=== PATIENT | female | born 1945 | race Caucasian/White ===

== ENCOUNTER 2018-02-12 09:47 | Day surgery (SDC) | payer MEDICARE, BC ==
[~2018-02-12 09:47] MED LIST: Lactated Ringers 1,000 ML IV SCH; Sodium Chloride 0.9% 10 ML Syringe FLUSH PRN; Sodium Chloride 0.9% 2.5 ML Syringe FLUSH PRN
[2018-02-12] MEDS ORDERED: fentaNYL 100 MCG/2 ML SDV ONE (10:24)
[2018-02-12] MEDS ORDERED: Midazolam 1 MG/ML 2 ML SDV ONE (10:24)
[2018-02-12] MEDS ORDERED: Propofol 200 MG/20 ML SDV ONE ×3 (10:24→12:25)
--- NOTE | 2018-02-12 10:31 | PCM.PREANE ---
Preanesthetic Assessment - Anesthesia/Transfusion/Family Hx Anesthesia History: Prior Anesthesia Without Reaction Family History of Anesthesia Reaction: No Transfusion History: No Prior Transfusion(s) Intubation History: Unknown - Review of Systems General: No Symptoms Pulmonary: No Symptoms Cardiovascular: No Symptoms Gastrointestinal: No Symptoms, Other (h/o large polyp) Neurological: No Symptoms Other: Reports: None - Physical Assessment O2 Sat by Pulse Oximetry: 96 Respiratory Rate: 16 Vital Signs: Last Vital Signs Temp 36.6 C 02/12/18 10:05 Pulse 83 02/12/18 10:05 Resp 16 02/12/18 10:05 BP 130/75 02/12/18 10:05 Pulse Ox 96 02/12/18 10:05 Height: 1.78 m Weight: 92.533 kg ASA Class: 3 Mental Status: Alert & Oriented x3 Airway Class: Mallampati = 2 Dentition: Reports: Bridge (upper fixed - 8 teeth) Thyro-Mental Finger Breadths: 3 Mouth Opening Finger Breadths: 2 ROM/Head Extension: Full Lungs: Clear to Auscultation, Normal Respiratory Effort Cardiovascular: Regular Rate, Regular Rhythm - Allergies Allergies/Adverse Reactions: Allergies Allergy/AdvReac Type Severity Reaction Status Date / Time No Known Allergies Allergy Verified 02/05/18 12:16 - Blood Blood Available: No - Anesthesia Plan Pre-Op Medication Ordered: None - Acknowledgements Anesthesia Type Planned: MAC Pt an Appropriate Candidate for the Planned Anesthesia: Yes Alternatives and Risks of Anesthesia Discussed w Pt/Guardian: Yes Pt/Guardian Understands and Agrees with Anesthesia Plan: Yes PreAnesthesia Questionnaire HEENT History: Reports: Other (See Below) Other HEENT History: wears glasses, has upper permanent partial denture Cardiovascular History: Reports: High Cholesterol, Hypertension Gastrointestinal History: Reports: Colon Polyp Musculoskeletal History: Reports: Arthritis, Fracture Other Musculoskeletal History: hx of fx toe, arthritis in hands Endocrine/Metabolic History: Reports: Hypothyroidism - Past Surgical History GI Surgical History: Reports: Colonoscopy (5 years ago (large cecal popyp - only partialy removed)) Female Surgical History: Reports: Other (See Below) Other Female Surgeries/Procedures: laparoscopy with removal of ovarian cyst - SUBSTANCE USE Smoking Status *Q: Former Smoker (stop smoking 35 years ago) Tobacco Use Within Last Twelve Months: No Days Per Week of Alcohol Use: 1 Number of Drinks Per Day: 4 Total Drinks Per Week: 4 Recreational Drug Use History: No - HOME MEDS Home Medications: Home Meds Ascorbic Acid [Vitamin C] 1,000 mg PO DAILY 02/09/18 [History] Aspirin [Adult Low Dose Aspirin EC] 81 mg PO DAILY 02/09/18 [History] Levothyroxine Sodium [Synthroid] 112 mcg PO DAILY 02/09/18 [History] Losartan/Hydrochlorothiazide [Losartan-HCTZ 100-25 MG] 1 tab PO DAILY 02/09/18 [ History] Lovastatin 10 mg PO DAILY 02/09/18 [History] Multivit-Min/FA/Lycopene/Lut [Centrum Silver Tablet] 1 tab PO DAILY 02/09/18 [ History] Vitamin B Complex 1 cap PO DAILY 02/09/18 [History] - CURRENT (IN HOUSE) MEDS Current Meds: Current Medications Lactated Ringer's (Ringers, Lactated) 1,000 mls @ 125 mls/hr IV ASDIRECTED SUSANNE Last Admin: 02/12/18 10:07 Dose: 125 mls/hr Sodium Chloride (Saline Flush) 10 ml FLUSH ASDIRECTED PRN PRN Reason: Keep Vein Open Sodium Chloride (Saline Flush) 2.5 ml FLUSH ASDIRECTED PRN PRN Reason: Keep Vein Open Sodium Chloride (Saline Flush) 10 ml FLUSH ASDIRECTED PRN PRN Reason: Keep Vein Open Sodium Chloride (Saline Flush) 2.5 ml FLUSH ASDIRECTED PRN PRN Reason: Keep Vein Open Discontinued Medications Fentanyl (Sublimaze) Confirm Administered Dose 100 mcg .ROUTE .STK-MED ONE Stop: 02/12/18 10:25 Midazolam HCl (Versed 1 Mg/Ml) Confirm Administered Dose 2 mg .ROUTE .STK-MED ONE Stop: 02/12/18 10:25 Propofol (Diprivan 20 Ml) Confirm Administered Dose 200 mg .ROUTE .STK-MED ONE Stop: 02/12/18 10:25
--- NOTE | 2018-02-12 12:36 | PCM48HPAN ---
Post Anesthesia Note - EVALUATION WITHIN 48HRS OF ANESTHETIC Vital Signs in Normal Range: Yes Patient Participated in Evaluation: Yes Respiratory Function Stable: Yes Airway Patent: Yes Cardiovascular Function Stable: Yes Hydration Status Stable: Yes Pain Control Satisfactory: Yes Nausea and Vomiting Control Satisfactory: Yes Mental Status Recovered: Yes Resp Rate: 18 - COMMENTS/OBSERVATIONS Free Text/Narrative:: no anesthesia problems
--- NOTE | 2018-02-12 13:26 | PCM.OPNOTE ---
- General Post-Op/Procedure Note Date of Surgery/Procedure: 02/12/18 Operative Procedure(s): Diagnostic EGD Findings: Cecal mass, hepatic flexure polyp, sigmoid polyp x 2, grade 3 hemorrhoids Pre Op Diagnosis: HIstory of cecal mass Post-Op Diagnosis: Cecal mass, hepatic flexure polyp, sigmoid colon polyp x 2, grade 3 hemorrhoids Anesthesia Technique: MAC Primary Surgeon: Nitza Hancock Condition: Good Free Text/Narrative:: Intake & Output 02/11/18 02/12/18 02/12/18 22:59 06:59 14:59 Intake Total 850 Balance 850
--- NOTE | 2018-02-13 11:50 | OR ---
SURGEON: HARDIK WALLS MD DATE OF PROCEDURE: 02/12/2018 PREOPERATIVE DIAGNOSIS: History of a cecal polyp. POSTOPERATIVE DIAGNOSES: 1. Cecal mass. 2. Hepatic flexure polyp. 3. Sigmoid colon polyps x2. 4. Grade 3 hemorrhoids. PROCEDURE PERFORMED: Diagnostic colonoscopy. ANESTHESIA: MAC. INSTRUMENT USED: Olympus colonoscope. EXTENT OF EXAM: To the cecum. PREPARATION: Good. LIMITATIONS: None. INDICATION: The patient is a 72-year-old female who presents for a repeat colonoscopy. Five years ago, she underwent a colonoscopy and was found to have a cecal mass. She went to [place] and had this removed endoscopically. The patient and I discussed the need for a followup colonoscopy. We discussed the procedure, expected perioperative course as well as the risks including bleeding, infection, or damage to surrounding structures including perforation. The patient verbalized understanding and wishes to proceed. PROCEDURE IN DETAIL: The patient was brought into the endoscopy suite and placed in a left lateral decubitus position. A time-out was completed verifying the patient's name, age, date of , allergies, and procedure to be performed. Monitored anesthesia care was induced and continuous oxygen was provided via nasal cannula throughout the procedure. After adequate sedation was achieved, a digital rectal exam was performed. The patient was noted to have reducible grade 3 hemorrhoids. The exam was otherwise normal. A well-lubricated colonoscope was inserted in the rectum and advanced under direct visualization to the level of the cecum. The cecum was identified by both visual and anatomic landmarks. A photograph was taken of the cecal cap. I was unable to retroflex the scope within the cecum; however, I was able to get a good look throughout the cecal cap. The scope was then fully withdrawn while examining the color, texture, anatomy, and integrity of the mucosa from the cecum to the anal canal. Right above the cecum, there was a large irregular-appearing mass. Given its size and location, the decision was made to perform biopsies, not attempt resection. These biopsies were sent to the lab labeled as cecal mass. The patient was noted to have a 2- to 3-mm polyp at the hepatic flexure. This was removed using cold biopsy forceps and sent to pathology labeled as hepatic flexure mass. Upon entering the distal sigmoid colon, 2 small sessile polyps were noted. These were removed using cold biopsy forceps. The scope was then brought into the rectum and retroflexed to allow visualization of the anal canal opening. This confirmed the findings of enlarged hemorrhoids. A photograph was taken. The scope was then straightened out and fully withdrawn. The cecum to anus time was 10 minutes. The patient tolerated the procedure well and was taken to PACU in a stable condition. ENDOSCOPIC DIAGNOSES: 1. Cecal mass. 2. Hepatic flexure polyp. 3. Sigmoid colon polyps x2. 4. Grade 3 hemorrhoids. RECOMMENDATIONS: I visited with the patient in the postoperative area. We will follow up on the biopsy results of the cecal mass and determine her next steps in care. ALEJANDRO PERKINS /[id number]
== END 2018-02-12 12:40 | disposition home or self-care (01) ==
LOC: MW.SDS 09:47
PROVIDERS: ATTEND Surgery
DX: Z12.11 Encounter for screening for malignant neoplasm of colon (principal); D12.0 Benign neoplasm of cecum; D12.3 Benign neoplasm of transverse colon; K63.5 Polyp of colon; K64.2 Third degree hemorrhoids; M19.90 Unspecified osteoarthritis, unspecified site; I10 Essential (primary) hypertension; E78.00 Pure hypercholesterolemia, unspecified; E03.9 Hypothyroidism, unspecified; Z79.82 Long term (current) use of aspirin; Z79.899 Other long term (current) drug therapy; Z98.890 Other specified postprocedural states; Z86.010 Personal history of colon polyps; Z87.891 Personal history of nicotine dependence
CPT/HCPCS: 45380; 88305; J2250; J3010; J7120; J2704

== ENCOUNTER 2019-06-15 08:45 | Day surgery (SDC) | payer MEDICARE, BC ==
[~2019-06-15 08:45] MED LIST changes: +Lidocaine 2% 5 ML SDV ONE; +Propofol 200 MG/20 ML SDV ONE; +Sodium Chloride 0.9% 10 ML SDV IV PRN; +fentaNYL 100 MCG/2 ML SDV ONE
--- NOTE | 2019-06-15 09:41 | PCM.PREANE ---
Preanesthetic Assessment - Anesthesia/Transfusion/Family Hx Anesthesia History: Prior Anesthesia Without Reaction Family History of Anesthesia Reaction: No Transfusion History: No Prior Transfusion(s) Intubation History: Unknown - Review of Systems General: No Symptoms Pulmonary: No Symptoms Cardiovascular: No Symptoms Gastrointestinal: No Symptoms Neurological: No Symptoms Other: Reports: None - Physical Assessment NPO Status Date: 06/14/19 Vital Signs: Last Vital Signs Temp 97.3 F 06/15/19 09:20 Pulse 76 06/15/19 09:20 Resp 16 06/15/19 09:20 BP 151/88 H 06/15/19 09:20 Pulse Ox 97 06/15/19 09:20 Height: 5 ft 10 in Weight: 90.265 kg ASA Class: 2 Mental Status: Alert & Oriented x3 Airway Class: Mallampati = 2 Lungs: Clear to Auscultation, Normal Respiratory Effort Cardiovascular: Regular Rate, Regular Rhythm - Allergies Allergies/Adverse Reactions: Allergies Allergy/AdvReac Type Severity Reaction Status Date / Time No Known Allergies Allergy Verified 06/10/19 09:13 - Blood Blood Available: No - Anesthesia Plan Pre-Op Medication Ordered: None - Acknowledgements Anesthesia Type Planned: General Anesthesia Pt an Appropriate Candidate for the Planned Anesthesia: Yes Alternatives and Risks of Anesthesia Discussed w Pt/Guardian: Yes Pt/Guardian Understands and Agrees with Anesthesia Plan: Yes Additional Comments: pmh: hld, htn, thyroid replacement PLAN: tiva PreAnesthesia Questionnaire HEENT History: Reports: Other (See Below) Other HEENT History: wears glasses, has upper permanent partial denture Cardiovascular History: Reports: High Cholesterol, Hypertension Respiratory History: Reports: None Gastrointestinal History: Reports: Colon Polyp Genitourinary History: Reports: None 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: Musculoskeletal History: Reports: Arthritis, Fracture Other Musculoskeletal History: hx of fx toe, arthritis in hands Neurological History: Reports: None Psychiatric History: Reports: None Endocrine/Metabolic History: Reports: Hypothyroidism Hematologic History: Reports: None Immunologic History: Reports: None Oncologic (Cancer) History: Reports: Colon Dermatologic History: Reports: None - Infectious Disease History Infectious Disease History: Reports: Chicken Pox, Measles - Past Surgical History Head Surgeries/Procedures: Reports: None HEENT Surgical History: Reports: None Cardiovascular Surgical History: Reports: None Respiratory Surgical History: Reports: None GI Surgical History: Reports: Colon, Colonoscopy, Other (See Below) Other GI Surgeries/Procedures: laparoscopic hemicolectomy Female Surgical History: Reports: Other (See Below) Other Female Surgeries/Procedures: laparoscopy with removal of ovarian cyst Endocrine Surgical History: Reports: None Neurological Surgical History: Reports: None Musculoskeletal Surgical History: Reports: None Oncologic Surgical History: Reports: None Dermatological Surgical History: Reports: None - SUBSTANCE USE Smoking Status *Q: Former Smoker Recreational Drug Use History: No - HOME MEDS Home Medications: Home Meds Aspirin [Adult Low Dose Aspirin EC] 81 mg PO DAILY 02/09/18 [History] Levothyroxine Sodium [Synthroid] 125 mcg PO DAILY 02/09/18 [History] Losartan/Hydrochlorothiazide [Losartan-HCTZ 100-25 MG] 1 tab PO DAILY 02/09/18 [ History] Lovastatin 20 mg PO DAILY 02/09/18 [History] Multivit-Min/FA/Lycopene/Lut [Centrum Silver Tablet] 1 tab PO DAILY 02/09/18 [ History] Vitamin B Complex 1 cap PO DAILY 02/09/18 [History] - CURRENT (IN HOUSE) MEDS Current Meds: Current Medications Lactated Ringer's (Ringers, Lactated) 1,000 mls @ 125 mls/hr IV ASDIRECTED SUSANNE Last Admin: 06/15/19 09:22 Dose: 125 mls/hr Sodium Chloride (Saline Flush) 10 ml FLUSH ASDIRECTED PRN PRN Reason: Keep Vein Open Sodium Chloride (Saline Flush) 2.5 ml FLUSH ASDIRECTED PRN PRN Reason: Keep Vein Open Sodium Chloride (Saline Flush) 10 ml FLUSH ASDIRECTED PRN PRN Reason: Keep Vein Open Sodium Chloride (Saline Flush) 2.5 ml FLUSH ASDIRECTED PRN PRN Reason: Keep Vein Open Sodium Chloride (Normal Saline) 10 ml IV ASDIRECTED PRN PRN Reason: IV Use Discontinued Medications Fentanyl (Sublimaze) Confirm Administered Dose 100 mcg .ROUTE .STK-MED ONE Stop: 06/15/19 08:29 Lidocaine (Xylocaine-Mpf 2%) Confirm Administered Dose 5 ml .ROUTE .STK-MED ONE Stop: 06/15/19 08:29 Propofol (Diprivan 20 Ml) Confirm Administered Dose 400 mg .ROUTE .STK-MED ONE Stop: 06/15/19 08:29
--- NOTE | 2019-06-15 10:13 | PCM.OPNOTE ---
- General Post-Op/Procedure Note Date of Surgery/Procedure: 06/15/19 Operative Procedure(s): colonoscopy Findings: staple line polyp Pre Op Diagnosis: hx of colorectal cancer Post-Op Diagnosis: staple line polyp Anesthesia Technique: MAC Primary Surgeon: Nitza Hancock Pathology: staple line polyp EBL in mLs: 0 Condition: Good
--- NOTE | 2019-06-15 10:40 | PCM.POSTAN ---
POST ANESTHESIA ASSESSMENT - MENTAL STATUS Mental Status: Alert, Oriented - VITAL SIGNS Vital Signs: Last Vital Signs Temp 97.9 F 06/15/19 10:14 Pulse 68 06/15/19 10:29 Resp 12 06/15/19 10:29 BP 117/72 06/15/19 10:29 Pulse Ox 96 06/15/19 10:29 - RESPIRATORY Respiratory Status: Respiratory Rate WNL, Airway Patent, O2 Saturation Stable - CARDIOVASCULAR CV Status: Pulse Rate WNL, Blood Pressure Stable, Elevated Pulse Rate - GASTROINTESTINAL GI Status: No Symptoms - POST OP HYDRATION Hydration Status: Adequate & Stable
--- NOTE | 2019-06-15 10:41 | PCM48HPAN ---
Post Anesthesia Note - EVALUATION WITHIN 48HRS OF ANESTHETIC Vital Signs in Normal Range: Yes Patient Participated in Evaluation: Yes Respiratory Function Stable: Yes Airway Patent: Yes Cardiovascular Function Stable: Yes Hydration Status Stable: Yes Pain Control Satisfactory: Yes Nausea and Vomiting Control Satisfactory: Yes Mental Status Recovered: Yes Vital Signs: Last Vital Signs Temp 97.9 F 06/15/19 10:14 Pulse 68 06/15/19 10:29 Resp 12 06/15/19 10:29 BP 117/72 06/15/19 10:29 Pulse Ox 96 06/15/19 10:29
--- NOTE | 2019-06-16 13:03 | OR ---
SURGEON: NITZA HANCOCK MD DATE OF PROCEDURE: 06/15/2019 PREOPERATIVE DIAGNOSIS: Screening colonoscopy. POSTOPERATIVE DIAGNOSIS: Staple line polyp. PROCEDURE PERFORMED: Screening colonoscopy. PRIMARY SURGEON: Nitza Hancock MD. ANESTHESIA: MAC. INSTRUMENT USED: Olympus colonoscope. EXTENT OF EXAM: To the anastomotic line. PREPARATION: Good. LIMITATIONS: None. 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 She underwent a right hemicolectomy. She is here for her 1- year followup. I explained the procedure; expected perioperative course; and risks including bleeding, infection, or damage to surrounding structures. The patient verbalized understanding and wishes to proceed. PROCEDURE IN DETAIL: The patient was brought into the endoscopy suite and placed in the left lateral decubitus position. A time-out was completed verifying the patient's name, age, date of , allergies, and procedure to be performed. Monitored anesthesia care was induced and continuous oxygen was provided via nasal cannula throughout the procedure. After adequate sedation was achieved, a digital rectal exam was performed. This exam was within normal limits. A well-lubricated colonoscope was inserted in the rectum and advanced under direct visualization to the level of the anastomotic line. The anastomotic line was identified by the small bowel inserting on the colon. The staple line was visible. Adjacent to the staple line was a small sessile polyp. This was removed in piecemeal fashion using cold biopsy forceps. The scope was then fully withdrawn while examining the color, texture, anatomy, and integrity of the mucosa from the anastomotic line to the rectum. The findings were consistent with normal colonic mucosa. The scope was then retroflexed within the rectum. This appeared normal and a photograph was taken. Scope was straightened and fully withdrawn. The cecum to anus time was 6 minutes. The patient tolerated the procedure well and was taken to the PACU in stable condition. ENDOSCOPIC DIAGNOSIS: Staple line polyp. RECOMMENDATIONS: Follow up in clinic in 2 weeks. ALEJANDRO PERKINS /[id number]
== END 2019-06-15 11:10 | disposition home or self-care (01) ==
LOC: MW.SDS 08:45
PROVIDERS: ATTEND Surgery
DX: Z08 Encounter for follow-up examination after completed treatment for malignant neoplasm (principal); D12.0 Benign neoplasm of cecum; I10 Essential (primary) hypertension; E78.00 Pure hypercholesterolemia, unspecified; E03.9 Hypothyroidism, unspecified; M19.042 Primary osteoarthritis, left hand; M19.041 Primary osteoarthritis, right hand; Z85.038 Personal history of other malignant neoplasm of large intestine; Z90.49 Acquired absence of other specified parts of digestive tract; Z79.82 Long term (current) use of aspirin; Z79.899 Other long term (current) drug therapy; Z87.891 Personal history of nicotine dependence
CPT/HCPCS: 45380; J2001; J2704; J3010; J7120; 00812; 88305

== ENCOUNTER 2020-09-16 13:42 | Emergency (ER) | payer MEDICARE, BC ==
--- NOTE | 2020-09-16 13:55 | EDM.PDOC ---
ED HPI GENERAL MEDICAL PROBLEM - General Chief Complaint: General Stated Complaint: LOSS OF APPETITE TIRED Time Seen by Provider: 09/16/20 13:52 Source of Information: Reports: Patient, Old Records History Limitations: Reports: No Limitations - History of Present Illness INITIAL COMMENTS - FREE TEXT/NARRATIVE: This is a very pleasant 75-year-old female with a past medical history of and hyperlipidemia presenting with fatigue and loss of appetite and sense of smell. She was diagnosed with COVID-19 on September 05, 2020 but states that her isolation. Ended at midnight last night. She presents to the ER today complaining of persistent fatigue and poor appetite. She states that she has lost 13 pounds since becoming ill because she does not like she wants to eat anything. She is drinking quite a bit of fluid and is not concerned about being dehydrated. She denies any chest discomfort or shortness of breath right now. Denies any recent vomiting, diarrhea, or fever for at least several days. No new sick contacts. She does have a history of colon cancer with a resection but does not have any known diagnosis of active cancer. ROS: A 10-point review of systems was negative, except as noted in the HPI (or in the ROS section of this note). Past medical history: Reviewed, no additional pertinent history. Surgical history: Reviewed in system, no additional pertinent history. Social history: Reviewed in system, no additional pertinent history. Family history: Reviewed in system, no additional pertinent history. PHYSICAL EXAM Vital signs reviewed. Nursing notes reviewed. Constitutional: Awake, alert, non-distressed. Head: Normocephalic, atraumatic. Eyes: EOMI, conjunctiva normal, no discharge, no scleral icterus. Ears, Nose, Throat: External ears and nose normal, moist oral mucosa. Cardiovascular: 2+ radial pulse, capillary refill less than 2 seconds. Pulmonary: normal work of breathing, no accessory muscle use. Abdomen/GI: Soft, nontender, nondistended, no guarding or rigidity, no masses. Musculoskeletal: No deformities. Integumentary: Appropriate color for ethnicity, warm, dry, no pallor or jaundice, no rash. Neurologic: Alert, answering questions appropriately, normal speech, no facial droop, moving all extremities well. Psychiatric: Appropriate mood and affect, normal thought process. This patient was seen and evaluated during the 2019 SARS-CoV-2 novel coronavirus pandemic period. Community viral transmission is ongoing at time of this encounter and the emergency department is operating under pandemic response procedures. - Related Data Allergies Allergy/AdvReac Type Severity Reaction Status Date / Time No Known Allergies Allergy Verified 09/16/20 13:55 Home Meds: Home Meds Aspirin [Adult Low Dose Aspirin EC] 81 mg PO DAILY 02/09/18 [History] Levothyroxine Sodium [Synthroid] 125 mcg PO DAILY 02/09/18 [History] Losartan/Hydrochlorothiazide [Losartan-HCTZ 100-25 MG] 1 tab PO DAILY 02/09/18 [History] Lovastatin 20 mg PO DAILY 02/09/18 [History] Multivit-Min/FA/Lycopen/Lutein [Centrum Silver Tablet] 1 tab PO DAILY 02/09/18 [History] Vitamin B Complex 1 cap PO DAILY 02/09/18 [History] Past Medical History HEENT History: Reports: Other (See Below) Other HEENT History: wears glasses, has upper permanent partial denture Cardiovascular History: Reports: High Cholesterol, Hypertension Respiratory History: Reports: None Gastrointestinal History: Reports: Colon Polyp Genitourinary History: Reports: None [employer] History: Reports: Musculoskeletal History: Reports: Arthritis, Fracture Other Musculoskeletal History: hx of fx toe, arthritis in hands Neurological History: Reports: None Psychiatric History: Reports: None Endocrine/Metabolic History: Reports: Hypothyroidism Hematologic History: Reports: None Immunologic History: Reports: None Oncologic (Cancer) History: Reports: Colon Dermatologic History: Reports: None - Infectious Disease History Infectious Disease History: Reports: Chicken Pox, Measles - Past Surgical History Head Surgeries/Procedures: Reports: None HEENT Surgical History: Reports: None Cardiovascular Surgical History: Reports: None Respiratory Surgical History: Reports: None GI Surgical History: Reports: Colon, Colonoscopy, Other (See Below) Other GI Surgeries/Procedures: laparoscopic hemicolectomy Female Surgical History: Reports: Other (See Below) Other Female Surgeries/Procedures: laparoscopy with removal of ovarian cyst Endocrine Surgical History: Reports: None Neurological Surgical History: Reports: None Musculoskeletal Surgical History: Reports: None Oncologic Surgical History: Reports: None Dermatological Surgical History: Reports: None Social & Family History - Caffeine Use Caffeine Use: Reports: Coffee ED ROS GENERAL - Review of Systems Review Of Systems: See Below ED EXAM, GENERAL - Physical Exam Exam: See Below #1 Interpretation EKG Interpretation Comments: 12-Lead ECG Interpretation Acquired: 2:13 PM Rhythm: Sinus rhythm Rate: 78 bpm Martinez: Normal Intervals: Normal Ectopy: None RV Strain: No obvious RV strain pattern. ST Segments/T-Waves: Q waves isolated to lead III Acute Ischemic Changes: None apparent Interpretation: No STEMI Course - Vital Signs Text/Narrative:: Patient hemodynamically stable, afebrile, well-appearing, looks nontoxic. Differential diagnosis includes but is not limited to: Persistent COVID-19 infection, anemia, myocardial infarction, electrolyte disturbance, kidney disease, liver disease, volume depletion, poor nutrition, and many others 1447: 12-lead ECG non-ischemic. Normal cell lines on CBC. Electrolyte panel shows very mild hyponatremia at 133. Normal creatinine. Very mild hypoalbuminemia. Negative troponin, normal TSH. At this point did not see a dangerous explanation for her fatigue and I believe that her symptoms are due to persistent COVID-19 infection. There is no evidence of malnutrition on her blood work other than mildly low albumin, her electrolytes otherwise look fairly reassuring. Patient does not look volume depleted. I see no obvious evidence of myocardial ischemia. I am the patient is stable to discharge home with outpatient primary care follow-up. I explained that she is likely still symptomatic from COVID-19 and may continue to be symptomatic for a short while longer. We did discuss dietary options to help recover the weight loss associated with her infection. I advised her to follow- up with a primary medical doctor in the next 1 to 2 weeks for reevaluation. Plan: Patient is stable to discharge home with outpatient primary care clinic follow-up. Strict emergency department return precautions were provided, patient indicated understanding. All questions were answered prior to departure. Discharged in good condition. Last Recorded V/S: Last Vital Signs Temp 36.1 C 09/16/20 13:52 Pulse 88 09/16/20 13:52 Resp 18 09/16/20 13:52 BP 122/63 09/16/20 13:52 Pulse Ox 95 09/16/20 13:52 - Orders/Labs/Meds Orders: Active Orders 24 hr Category Date Time Status EKG Documentation Completion [RC] STAT Care 09/16/20 13:59 Active Labs: Laboratory Tests 09/16/20 09/16/20 Range/Units 14:27 14:27 WBC 8.54 (4.0-11.0) K/uL RBC 3.84 L (4.30-5.90) M/uL Hgb 12.1 (12.0-16.0) g/dL Hct 35.9 L (36.0-46.0) % MCV 93.5 (80.0-98.0) fL MCH 31.5 (27.0-32.0) pg MCHC 33.7 (31.0-37.0) g/dL RDW Std Deviation 45.0 (28.0-62.0) fl RDW Coeff of Corbin 13 (11.0-15.0) % Plt Count 379 (150-400) K/uL MPV 8.90 (7.40-12.00) fL Neut % (Auto) 73.3 (48.0-80.0) % Lymph % (Auto) 9.8 L (16.0-40.0) % Divide % (Auto) 15.7 H (0.0-15.0) % Eos % (Auto) 1.1 (0.0-7.0) % Baso % (Auto) 0.1 (0.0-1.5) % Neut # (Auto) 6.3 H (1.4-5.7) K/uL Lymph # (Auto) 0.8 (0.6-2.4) K/uL Divide # (Auto) 1.3 H (0.0-0.8) K/uL Eos # (Auto) 0.1 (0.0-0.7) K/uL Baso # (Auto) 0.0 (0.0-0.1) K/uL Nucleated RBC % 0.0 /100WBC Nucleated RBCs # 0 K/uL Sodium 133 L (136-145) mmol/L Potassium 3.7 (3.5-5.1) mmol/L Chloride 98 (98-107) mmol/L Carbon Dioxide 27.6 (21.0-32.0) mmol/L BUN 22 H (7.0-18.0) mg/dL Creatinine 1.0 (0.6-1.0) mg/dL Est Cr Clr Drug Dosing 53.37 mL/min Estimated GFR (MDRD) 54.2 ml/min Glucose 97 (74-106) mg/dL Calcium 9.0 (8.5-10.1) mg/dL Total Bilirubin 0.6 (0.2-1.0) mg/dL AST 18 (15-37) IU/L ALT 19 (14-63) IU/L Alkaline Phosphatase 63 (46-116) U/L Troponin I < 0.050 (0.000-0.056) ng/mL Total Protein 7.2 (6.4-8.2) g/dL Albumin 3.3 L (3.4-5.0) g/dL Globulin 3.9 (2.6-4.0) g/dL Albumin/Globulin Ratio 0.9 (0.9-1.6) TSH 3rd Generation 1.85 (0.36-3.74) uIU/mL Departure - Departure Time of Disposition: 15:27 Disposition: Home, Self-Care 01 Condition: Good Clinical Impression: COVID-19 virus infection, Weight loss Fatigue Qualifiers: Fatigue type: other Qualified Code(s): R53.83 - Other fatigue - Discharge Information Referrals: Dionne Stapleton DO [Primary Care Provider] - Forms: ED Department Discharge Additional Instructions: I believe that you are still symptomatic from your COVID-19 infection. You need to wear a mask or face covering and you should cover your cough or sneeze. Wash your hands frequently. Try to isolate yourself from family members or others as much as you can. You may develop new symptoms such as a headache, sore throat, cough, sneezing, nasal congestion or drainage, chest congestion, nausea, vomiting, diarrhea, body aches, or chills. These are not unusual. You can take any standard [id number] medications for cold or flu type symptoms including fever reducing medications (acetaminophen or ibuprofen), cough medications (Robitussin, cough drops or lozenges), or medications like TheraFlu or DayQuil/NyQuil. Be sure you are drinking plenty of fluids. Regarding the weight loss, I recommend nutritional supplement drinks such as boost or Ensure. Please be sure that you are drinking several days per day. You can also try to take high fat foods such as ice cream or milk shakes as tolerated. We did not prescribe appetite boosting medications in the emergency department and these are best monitored by a primary care/family physician. Warning signs to come back to the emergency department include shortness of breath, chest pain, lightheadedness, loss of consciousness, if you are unable to swallow or handle drinking fluids, or if you have any other new and concerning symptoms. Thank you for choosing the [facility] emergency department in [place] for your medical needs today. It was a pleasure caring for you. The following information is given to patients seen in the emergency department who are being discharged. This information is to outline your options for follow-up care. We provide all patients seen in our emergency department with a follow-up referral. The need for follow-up, as well as the timing and circumstances, are variable depending upon the specifics of your emergency department visit. If you don't have a primary care physician on staff, we will provide you with a referral. We always advise you to contact your personal physician following an emergency department visit to inform them of the circumstance of the visit and for follow-up with them and/or the need for any referrals to a consulting specialist. The emergency department will also refer you to a specialist when appropriate. This referral assures that you have the opportunity for follow-up care with a specialist. All of these measure are taken in an effort to provide you with optimal care, which includes your follow-up. Under all circumstances we always encourage you to contact your private physician who remains a resource for coordinating your care. When calling for follow-up care, please make the office aware that this follow-up is from your recent emergency room visit. If for any reason you are refused follow-up, please contact the [facility] Emergency Department at and asked to speak to the emergency department charge nurse. If you do not have a primary care physician that is caring for you, you can contact these clinics below to set up an appointment to establish care: [facility] - Primary Care [address] [place] [address] [facility] [address] [place] [address] Sepsis Event Note (ED) - Evaluation Sepsis Screening Result: No Definite Risk - Focused Exam Vital Signs: Vital Signs Temp Pulse Resp BP Pulse Ox 09/16/20 13:52 36.1 C 88 18 122/63 95 - My Orders Last 24 Hours: My Active Orders 09/16/20 13:59 EKG Documentation Completion [RC] STAT - Assessment/Plan Last 24 Hours: My Active Orders 09/16/20 13:59 EKG Documentation Completion [RC] STAT
[2020-09-16 15:13] LABS: BLOOD UREA NITROGEN,BUN 22 mg/dL (7.0-18.0); CARBON DIOXIDE,CO2 27.6 mmol/L (21.0-32.0); CHLORIDE,CL 98 mmol/L (98-107); GLUCOSE RANDOM 97 mg/dL (74-106); POTASSIUM,K 3.7 mmol/L (3.5-5.1); SODIUM,NA 133 mmol/L (136-145)
== END 2020-09-16 15:36 | disposition home or self-care (01) ==
LOC: MW.ED 13:42
DX: U07.1 COVID-19 (principal); R63.4 Abnormal weight loss; E78.00 Pure hypercholesterolemia, unspecified; I10 Essential (primary) hypertension; E03.9 Hypothyroidism, unspecified; Z79.82 Long term (current) use of aspirin; Z79.899 Other long term (current) drug therapy
CPT/HCPCS: 36415; 80053; 84443; 84484; 85025; 93005; 99284; 99284-25

== ENCOUNTER 2021-08-28 09:59 | Day surgery (SDC) | payer MEDICARE, BC ==
[~2021-08-28 09:59] MED LIST changes: -Lidocaine 2% 5 ML SDV ONE; -Propofol 200 MG/20 ML SDV ONE; -fentaNYL 100 MCG/2 ML SDV ONE
--- NOTE | 2021-08-28 12:19 | PCM.PREANE ---
Preanesthetic Assessment - Procedure Proposed Procedure: Colonoscopy - Anesthesia/Transfusion/Family Hx Anesthesia History: Prior Anesthesia Without Reaction Family History of Anesthesia Reaction: No Transfusion History: No Prior Transfusion(s) Intubation History: Unknown - Review of Systems General: No Symptoms Pulmonary: No Symptoms (Remote smoking >35 yrs ago, seasonal allergies) Cardiovascular: No Symptoms (HTN, HLD) Gastrointestinal: No Symptoms (H/O Colon CA s/p Hemicolectomy) Neurological: No Symptoms Other: Reports: Thyroid Problems (Hypo) - Physical Assessment NPO Status Date: 08/26/21 NPO Status Time: 19:00 (Solids, >8 hrs Liq) Vital Signs: Last Vital Signs Temp 98.2 F 08/28/21 12:14 Pulse 74 08/28/21 12:14 Resp 16 08/28/21 12:14 BP 131/78 08/28/21 12:14 Pulse Ox 95 08/28/21 12:14 Height: 5 ft 10 in Weight: 83.461 kg ASA Class: 2 Mental Status: Alert & Oriented x3 Airway Class: Mallampati = 3 Dentition: Reports: Normal Dentition Thyro-Mental Finger Breadths: 2 Mouth Opening Finger Breadths: 3 ROM/Head Extension: Full Lungs: Clear to Auscultation, Normal Respiratory Effort Cardiovascular: Regular Rate, Regular Rhythm - Lab Values: Laboratory Last Values SARS-CoV-2 RNA (LISANDRA) NEGATIVE (NEGATIVE) 08/28/21 10:10 - Allergies Allergies/Adverse Reactions: Allergies Allergy/AdvReac Type Severity Reaction Status Date / Time seasonal allergies Allergy "stuffy & Uncoded 08/28/21 12:15 runny nose" - Acknowledgements Anesthesia Type Planned: General Anesthesia Pt an Appropriate Candidate for the Planned Anesthesia: Yes Alternatives and Risks of Anesthesia Discussed w Pt/Guardian: Yes Pt/Guardian Understands and Agrees with Anesthesia Plan: Yes PreAnesthesia Questionnaire HEENT History: Reports: Allergic Rhinitis, Other (See Below) Other HEENT History: wears glasses, has upper partial denture Cardiovascular History: Reports: High Cholesterol, Hypertension Respiratory History: Reports: None Gastrointestinal History: Reports: Colon Polyp, Hemorrhoids 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: Musculoskeletal History: Reports: Arthritis, Fracture Other Musculoskeletal History: hx of fx toe, arthritis in hands Neurological History: Reports: None Psychiatric History: Reports: None Endocrine/Metabolic History: Reports: Hypothyroidism Hematologic History: Reports: None Immunologic History: Reports: None Oncologic (Cancer) History: Reports: Colon Dermatologic History: Reports: None - Infectious Disease History Infectious Disease History: Reports: Chicken Pox, Measles - Past Surgical History Head Surgeries/Procedures: Reports: None HEENT Surgical History: Reports: None Cardiovascular Surgical History: Reports: None Respiratory Surgical History: Reports: None GI Surgical History: Reports: Colon, Colonoscopy, Other (See Below) Other GI Surgeries/Procedures: laparoscopic hemicolectomy Female Surgical History: Reports: Other (See Below) Other Female Surgeries/Procedures: ovarian cystectomy Endocrine Surgical History: Reports: None Neurological Surgical History: Reports: None Musculoskeletal Surgical History: Reports: None Oncologic Surgical History: Reports: None Dermatological Surgical History: Reports: None - SUBSTANCE USE Tobacco Use Status *Q: Former Tobacco User Tobacco Use Within Last Twelve Months: No - HOME MEDS Home Medications: Home Meds Aspirin [Adult Low Dose Aspirin EC] 81 mg PO DAILY 02/09/18 [History] Levothyroxine Sodium [Synthroid] 125 mcg PO DAILY 02/09/18 [History] Losartan/Hydrochlorothiazide [Losartan-HCTZ 100-25 MG] 1 tab PO DAILY 02/09/18 [History] Lovastatin 20 mg PO DAILY 02/09/18 [History] Multivit-Min/FA/Lycopen/Lutein [Centrum Silver Tablet] 1 tab PO DAILY 02/09/18 [History] Vitamin B Complex 1 cap PO DAILY 02/09/18 [History] diphenhydrAMINE HCL [Allergy Medication] 1 tab PO ASDIRECTED PRN 08/22/21 [History] - CURRENT (IN HOUSE) MEDS Current Meds: Current Medications Lactated Ringer's (Ringers, Lactated) 1,000 mls @ 125 mls/hr IV ASDIRECTED SUSANNE Last Admin: 08/28/21 12:15 Dose: 125 mls/hr Documented by: Sodium Chloride (Sodium Chloride 0.9% 10 Ml Syringe) 10 ml FLUSH ASDIRECTED PRN PRN Reason: Keep Vein Open Sodium Chloride (Sodium Chloride 0.9% 2.5 Ml Syringe) 2.5 ml FLUSH ASDIRECTED PRN PRN Reason: Keep Vein Open Sodium Chloride (Sodium Chloride 0.9% 10 Ml Syringe) 10 ml FLUSH ASDIRECTED PRN PRN Reason: Keep Vein Open Sodium Chloride (Sodium Chloride 0.9% 2.5 Ml Syringe) 2.5 ml FLUSH ASDIRECTED PRN PRN Reason: Keep Vein Open Sodium Chloride (Sodium Chloride 0.9% 10 Ml Sdv) 10 ml IV ASDIRECTED PRN PRN Reason: IV Use
[2021-08-28] MEDS ORDERED: Propofol 200 MG/20 ML SDV ONE ×2 (13:08→13:13)
[2021-08-28] MEDS ORDERED: fentaNYL 100 MCG/2 ML SDV ONE (13:08)
--- NOTE | 2021-08-28 14:13 | PCM.POSTAN ---
POST ANESTHESIA ASSESSMENT - MENTAL STATUS Mental Status: Alert, Oriented - VITAL SIGNS Vital Signs: Last Vital Signs Temp 97.3 F 08/28/21 14:00 Pulse 80 08/28/21 14:11 Resp 15 08/28/21 14:11 BP 115/72 08/28/21 14:11 Pulse Ox 98 08/28/21 14:11 - RESPIRATORY Respiratory Status: Respiratory Rate WNL, Airway Patent, O2 Saturation Stable - CARDIOVASCULAR CV Status: Pulse Rate WNL, Blood Pressure Stable - GASTROINTESTINAL GI Status: No Symptoms - PAIN Pain Score: 0 - POST OP HYDRATION Hydration Status: Adequate & Stable
--- NOTE | 2021-08-28 14:15 | PCM48HPAN ---
Post Anesthesia Note - EVALUATION WITHIN 48HRS OF ANESTHETIC Vital Signs in Normal Range: Yes Patient Participated in Evaluation: Yes Respiratory Function Stable: Yes Airway Patent: Yes Cardiovascular Function Stable: Yes Hydration Status Stable: Yes Pain Control Satisfactory: Yes Nausea and Vomiting Control Satisfactory: Yes Mental Status Recovered: Yes Vital Signs: Last Vital Signs Temp 97.3 F 08/28/21 14:00 Pulse 80 08/28/21 14:11 Resp 15 08/28/21 14:11 BP 115/72 08/28/21 14:11 Pulse Ox 98 08/28/21 14:11 - COMMENTS/OBSERVATIONS Free Text/Narrative:: Pt doing well post-op. VSS. No apparent anesthetic complications. Dr. Ravi Ramirez
--- NOTE | 2021-08-28 15:15 | PCM.OPNOTE ---
- General Post-Op/Procedure Note Date of Surgery/Procedure: 08/28/21 Operative Procedure(s): Screening colonoscopy Findings: Normal colonoscopy. Pre Op Diagnosis: History of colon cancer Post-Op Diagnosis: Normal colonoscopy Anesthesia Technique: NATASHA Primary Surgeon: Nitza Hancock Condition: Good Free Text/Narrative:: Intake & Output 08/28/21 08/28/21 08/28/21 06:59 14:59 22:59 Intake Total 1100 Balance 1100
--- NOTE | 2021-08-29 19:41 | OR ---
SURGEON: NITZA HANCOCK MD DATE OF PROCEDURE: 08/28/2021 PREOPERATIVE DIAGNOSIS: History of colon cancer. POSTOPERATIVE DIAGNOSIS: History of colon cancer. PROCEDURE PERFORMED: Screening colonoscopy. PRIMARY SURGEON: Nitza Hancock MD ANESTHESIA: MAC. INSTRUMENT USED: Olympus colonoscope. EXTENT OF EXAM: To the small bowel colonic anastomotic line. PREPARATION: Good. LIMITATIONS: None. INDICATIONS FOR EXAMINATION: The patient is a 76-year-old female who has previously undergone a right hemicolectomy for colon cancer. She is due for her 3-year followup colonoscopy. I explained the procedure, expected perioperative course, and the risks. She verbalized understanding and wishes to proceed. PROCEDURE IN DETAIL: The patient was brought to the endoscopy suite and placed in the left lateral decubitus position. A time-out was completed verifying the patient's name, age, date of , allergies, and procedure to be performed. Monitored anesthesia care was induced and continuous oxygen was provided via nasal cannula throughout the procedure. After adequate sedation was achieved, a digital rectal exam was performed. This exam was within normal limits. A well-lubricated colonoscope was inserted in the rectum and advanced under direct visualization to the level of the anastomotic line. A photograph of this was taken. I then fully withdrew the scope while examining the color, texture, anatomy, and integrity of the mucosa of the remaining colon. The anastomotic line appeared to be intact. There was no evidence of reoccurrence along the anastomotic line. The small bowel mucosa appeared healthy and pink. The remainder of the colonic mucosa all appeared normal. The scope was brought into the rectum and retroflexed to allow visualization of the anal canal opening. This appeared normal and a photograph was taken. The scope was then straightened out and fully withdrawn. The time from the anastomotic line to the completion of the procedure was 8 minutes. The patient tolerated the procedure well was transferred to the PACU in stable condition. ENDOSCOPIC DIAGNOSIS: Normal colonoscopy. RECOMMENDATIONS: Follow up in clinic in 2 years for her 5-year followup colonoscopy. ALEJANDRO PERKINS /[id number]
== END 2021-08-28 14:38 | disposition home or self-care (01) ==
LOC: MW.SDS 09:59
PROVIDERS: ATTEND Surgery
DX: Z12.11 Encounter for screening for malignant neoplasm of colon (principal); I10 Essential (primary) hypertension; E78.00 Pure hypercholesterolemia, unspecified; E03.9 Hypothyroidism, unspecified; Z79.82 Long term (current) use of aspirin; Z79.899 Other long term (current) drug therapy; Z79.890 Hormone replacement therapy; Z90.49 Acquired absence of other specified parts of digestive tract; Z98.890 Other specified postprocedural states; Z87.891 Personal history of nicotine dependence; Z01.812 Encounter for preprocedural laboratory examination; Z20.822 Contact with and (suspected) exposure to COVID-19; Z98.0 Intestinal bypass and anastomosis status; Z85.038 Personal history of other malignant neoplasm of large intestine
CPT/HCPCS: G0105; J2704; J3010; J7120; U0002; 00812; 99100